=== PATIENT | female | born 1960 | race Caucasian/White ===

== ENCOUNTER 2025-07-07 10:03 | Outpatient (AMB) | payer MEDICARE, SELFPAY ==
[2025-07-07 10:10] VITALS: BMI 32.6
--- NOTE | 2025-07-07 10:10 | A.PHYSOV_ITS ---
Vital Signs 07/07/25 10:10 Height 5 ft 4 in Weight 190 lb BMI 32.6 Intake Visit Reasons: NPV Rebecca Ref- back pain Intake Note: Patient is a 64 year old female in office today as new patient for low back pain. Right leg and hip pain. Allergies adhesive Allergy (Unknown, Verified 07/07/25 10:12) Unknown HPI Comments Details: History of Present Illness The patient is a 64 year old individual presenting with chronic back pain. The patient has had back pain for years, and a prior X-ray reportedly showed degeneration. The pain is localized to the low back with radiation to the right hip and buttock. The pain is exacerbated by standing for more than 5-10 minutes, sleeping, and slight bending at the waist. Walking is tolerated for short periods before a burning sensation begins in the low back, and using a shopping cart for support makes the pain worse. The patient also reports severe pain in the right buttock and hip upon waking in the morning, which improves with movement. The patient denies any numbness or tingling in the legs. Past treatments include physical therapy with traction and stretching, with only cupping providing minimal, temporary relief. Tylenol is ineffective, and muscle relaxers primarily cause somnolence. The patient has tried topical rubs and previously used tramadol post-operatively with some benefit. Relevant medical history includes Stage 3 Chronic Kidney Disease and arthritis. Due to the kidney condition, the patient avoids ibuprofen but admits to taking it infrequently for severe pain. The patient underwent bilateral total knee arthroplasty this year (right in September, left in January) but reports ongoing knee pain and is dissatisfied with the outcome. The patient denies a history of diabetes or being on blood thinners. Pain Description - Location: Low back, right hip, and right buttock. - Onset: The patient has had back pain for years. - Quality: Described as a burning sensation in the lower back after walking, and devastating pain in the right buttock and hip in the morning. - Exacerbating Factors: Pain is worse with standing for more than 5-10 minutes, sleeping, slight bending at the waist, and backward extension. - Relieving Factors: Morning pain in the right hip and buttock improves with movement. - Associated Symptoms: The patient denies numbness or tingling in the legs. - Interference with function: The patient has difficulty standing for more than 10 minutes and performing tasks that require a slight forward lean. Results - Imaging: Patient reports a previous back X-ray showed degeneration. [facility] Medical History (Updated 07/07/25 @ 10:50 by Junior Majano DO) Sacroiliac inflammation Sacroiliac dysfunction Lumbar radiculitis Lumbar disc herniation Surgical History (Updated 06/28/25 @ 15:04 by Humaira Gao MA) History of knee surgery (Unknown) Fistula of vagina (Unknown) History of (Unknown) Social History (Updated 07/07/25 @ 10:13 by Humaira Gao MA) Household Members: Significant Other Alcohol intake: current Alcohol intake frequency: holidays/special occasions only Patient Tobacco Use Status: Former Tobacco user Current occupational status: retired Review of Systems Narrative Review of Systems - Musculoskeletal: Reports chronic low back pain, right hip pain, right buttock pain, and bilateral knee pain. - Neurological: Denies numbness or tingling in the legs. - Genitourinary: Reports a history of stage 3 kidney disease. Physical Exam Exam Exam: Physical Exam - Back: Audible popping noted with standing. - Back: Tenderness to palpation over the lower and middle back. - Range of Motion: Pain elicited with backward extension of the spine. - Range of Motion: There was no pain with internal rotation of the right hip. Pain with palpation over right SI sulcus. Positive right SI provocative maneuvers including SI compression test, Antonio and Hamilton sign. Neurological examination was nonfocal. Lumbar extension was restricted. Gait was waddling. Heel walk and toe walk were not tested. Patient demonstrated no upper motor neuron signs. Vital Signs: BMI result Body Mass Index 32.6 Assessment & Plan Assessment & Plan (1) Lumbar disc herniation: Code(s): M51.26 - Other intervertebral disc displacement, lumbar region Category: Medical (2) Lumbar radiculitis: Code(s): M54.16 - Radiculopathy, lumbar region Category: Medical (3) Sacroiliac dysfunction: Code(s): M53.3 - Sacrococcygeal disorders, not elsewhere classified Category: Medical (4) Sacroiliac inflammation: Code(s): M46.1 - Sacroiliitis, not elsewhere classified Category: Medical Plan Pain Management - Analgesia: The patient reports that Tylenol is ineffective. - Analgesia: The patient uses ibuprofen less than once a week for severe pain, despite a history of kidney disease. - Analgesia: Previous trials include topical rubs and muscle relaxers. - Activities of Daily Living: Pain limits standing to 5-10 minutes and makes tasks involving a slight bend at the waist difficult. - Adverse Effects: Muscle relaxers cause somnolence. - Aberrant Drug Related Behaviors: None noted. Plan Patient was informed and verbally consented to the use of an ambient scribe for clinic note documentation during this visit. 1. Chronic Low Back Pain The patient's chronic low back pain with radiation to the right buttock and hip is exacerbated by standing and slight forward leaning. The differential diagnosis includes a herniated disc pinching a nerve or sacroiliac joint pathology. An MRI of the lumbar spine will be ordered to further evaluate the etiology. For analgesia, tramadol will be prescribed for occasional use for severe pain. It was recommended that the patient start taking turmeric 2000 mg daily with black pepper for its anti-inflammatory effects, which is a safer alternative to NSAIDs given the patient's kidney condition. Follow-up will be scheduled after the holidays to review the MRI results. 2. Chronic Kidney Disease, Stage 3 The patient has a known history of Stage 3 CKD, which contraindicates the use of NSAIDs for pain management. Pain management will focus on safer alternatives, including the prescribed tramadol and the recommended turmeric supplement. The patient will continue to be monitored by the primary care provider for the kidney disease. 3. Chronic Bilateral Knee Pain The patient continues to experience significant bilateral knee pain and expresses dissatisfaction following total knee arthroplasties earlier this year. The knee pain will be managed adjunctively with the pain regimen established for the low back pain, including as-needed tramadol and daily turmeric. Discussion Notes I discussed with the patient that the low back pain, radiating to the right buttock and hip, may be due to a herniated disc a or sacroiliac joint issue. To investigate further, I recommended an MRI of the lower back, and the patient agreed. We reviewed pain management options, noting that NSAIDs like ibuprofen are contraindicated due to the patient's stage 3 chronic kidney disease. I prescribed a limited supply of tramadol for occasional use for severe pain, which the patient has tolerated in the past. I also recommended starting a daily supplement of turmeric 2000 mg with black pepper for its natural anti- inflammatory properties, which is safe for the kidneys. The patient inquired about getting a new bed; I advised that a firm mattress is generally best but could not guarantee it would resolve the back pain. The patient was instructed to schedule a follow-up visit after the holidays to review the MRI results and discuss next steps in management. Patient Instructions - We are ordering an MRI of your lower back to get a better look at what is causing your pain. The imaging center will call you to schedule this. - I have sent a prescription for Tramadol to your pharmacy. Take this medication only as needed for severe pain, as it can cause drowsiness. - Avoid taking anti-inflammatory medications like ibuprofen or naproxen due to your kidney condition. - I recommend you start taking a turmeric supplement, 2000 mg every day. Make sure the brand you buy also contains black pepper, as this helps it work better. This must be taken consistently every day. - Please schedule a follow-up appointment with our office to occur after the holidays. We will review the results of your MRI at that visit. Orders: Orders MR lumbar spine wo con Today M46.1 - Sacroiliitis, not elsewhere classified, M51.26 - Other intervertebral disc displacement, lumbar region, M53.3 - Sacrococcygeal disorders, not elsewhere classified, M54.16 - Radiculopathy, lumbar region Medications: New tramadol Partial fill upon request 100 mg (2 x 50 mg) PO Q6H PRN 56 tabs 0RF pain 7 days M46.1 - Sacroiliitis, not elsewhere classified, M51.26 - Other intervertebral disc displacement, lumbar region, M53.3 - Sacrococcygeal disorders, not elsewhere classified, M54.16 - Radiculopathy, lumbar region Coding Level of Care Code Tele New Pt Level 4 (81983) Complex visit Add On G2211 Diagnoses Lumbar disc herniation M51.26 Lumbar radiculitis M54.16 Sacroiliac dysfunction M53.3 Sacroiliac inflammation M46.1
--- OUTSIDE RECORDS SUMMARY | 2025-07-07 11:24 | XMS_ITS | Encounter Summary ---
Author Organization [facility] Address [address] [place] [address] Care Team Providers Care Candy Attendant Name Role Phone Adina Anderson MD Primary Care Pr ovider Encounter Details Date Type Department Care Team (Late st Contact Info) Description 06/11/2025 Results Follow-Up Adult Medicine [facility] [address] [place], [place] [phone] Sayra Mann PA [address] [place], [place] Social History Tobacco Use Types Packs/Day Years Used Date Smoking Tobacco: Former Cigarettes 0.3 39.9 0 08/05/1976 - 06/23/2016 Smokeless Tobacco: Never Comments:Been using nicotine gum for 5 years quit these 5 days ago Alcohol Use Standard Drinks/Week Comments Yes 0.8 (1 standard drink = 0.6 oz p ure alcohol) RARELY Housing Instability Answer Date Recorde d Are you worried that in the next 2 months you may not have stable housing? No 01/10/2025 Food Access & Nutrition Answer Date Rec orded Do you have access to a vari ety of food including fruits and vegetables? Yes 01/10/2025 Access to Healthcare Answer Date Record ed Within the last 3 months, ho w many times did you visit the emergency department for your medical care? 0 01/10/2025 Health Literacy Answer Date Recorded How often do you need to hav e someone help you when you read instructions, pamphlets, or other written material from your doctor or pharmacy? Rarely 01/10/2025 Caregiver: How often do you need to have someone help you when you read instructions, pamphlets, or other written material from your doctor or pharmacy? Not on file 01/10/2025 Financial Risk Answer Date Recorded How hard is it for you to pa y for the very basics like food, housing, medical care, and air conditioning / heating? Not very hard 01/10/2025 Transportation Answer Date Recorded Has the lack of transportati on kept you from meetings, work, or from getting things needed for daily living? No Has the lack of transportati on kept you from medical appointments or from getting medications? No 01/10/2025 Social Isolation Answer Date Recorded How often do you feel lonely or isolated from th ose around you? Rarely 01/10/2025 Food Risk Answer Date Recorded Within the past 12 months we worried whether our food would run out before we got money to buy more. Never true 01/10/2025 Within the past 12 months th e food we bought just didn't last and we didn't have money to get more. Never true 01/10/2025 Dependent Care Answer Date Recorded Do you need help finding or paying for care for your loved ones. For example, children counselor or elderly care for an older adult? No 01/10/2025 Education Answer Date Recorded Do you think completing more education or training, like finishing a GED, going to college, or learning a trade, would be helpful for you? No 01/10/2025 Employment and Income Answer Date Recor ded During the last four weeks, have you been actively looking for work? No 01/10/2025 Living Situation Answer Date Recorded What is your living situation? Unrecognized valu e 01/10/2025 Interpersonal Safety Answer Date Record ed Physical Abuse Unrecognized value 01/04/2025 Verbal Abuse Unrecognized value 01/04/2025 Comments No Sex and Gender Information Value Date Recorded Sex Assigned at Female 09/29/2024 8:58 AM EST Legal Sex Female 5:15 PM EST Gender Identity Female 09/29/2024 8:58 AM EST Sexual Orientation Straight 09/29/2024 8: 58 AM EST Travel History Travel Start Travel End [place] 05/31/2025 06/07/2025 documented as of this encounter Plan of Treatment Upcoming Encounters Date Type Department Care Team (Late st Contact Info) Description 07/16/2025 11:20 AM EST Appointment Radiology Department [facility] [place] [facility] [address] [place] [address] 07/19/2025 10:10 AM EST Office Visit Pulmonology - [place] [address] [facility] [address] [place] [address] Mary Mcgowan, JAYME [address] [place] [address] 12/29/2025 11:30 AM EDT Office Visit Orthopedic Surgery [facility] [address] [facility] [address] [place] [phone] Tavo Abdi MD [address] [address] documented as of this encounter Visit Diagnoses Not on filedocumented in this encounter Additional Health Concerns Assessment Noted Time PHQ-9 Depression Total Score: 10 025 11:22 AM EDT documented as of this encounter Care Teams Candy Attendant Relationship Specialty Start Date End Date Adina Anderson MD [address] [place] [address] PCP - General 05/09/23 documented as of this encounter
--- OUTSIDE RECORDS SUMMARY | 2025-07-07 11:24 | XMS_ITS ---
Author Name [facility] ([place], [place]) Organization Unknown Care Team Organization Name Specialty Phone Email Start Date End Da te [facility] 06/12/2022
--- OUTSIDE RECORDS SUMMARY | 2025-07-07 11:24 | XMS_ITS | Clinical Summary ---
Author Organization [facility] [address] [place] [address] [address] [place] [address] Phone Care Team Providers Care Supply Chain Technician Name Role Phone Adina Anderson MD Primary Care Pr ovider Allergies Active Allergy Reactions Criticality Noted Date Comments Adhesive Rash Medium 01/27/2025 STERI-STRIP ADHESIVE Silver-Foam Bandage Rash Medium 01/15/2025 Bupropion 07/06/2025 Nausea, hallucinations Medications UNABLE TO FIND Inhale into the lungs. Cpap machine E0601 pressure 10 Active Efudex 5 % cream 023 Active fluticasone HFA (FLOVENT HFA) 110 mcg/actuation inhaler Active propylene glycol/peg 400/PF (SYSTANE, PF, OPHT) Administer 2 drops into affected eye(s) 3 (three) times a day if needed (dry eyes). Active Ventolin HFA 90 mcg/actuation inhalerIndication s:Mild intermittent asthma without complication Inhale 1 puff by mouth every 6 (six) hours if needed for wheezing. 18 g 1 025 Active lisinopriL (PRINIVIL,ZESTRIL ) 5 mg tabletIndications :Stage 3a chronic kidney disease (CMS/HCC V24, CMS/HCC V28),Essential hypertension, benign Take 1 tablet (5 mg total) by mouth 1 (one) time each day. 90 each 1 025 2024 Active cholecalciferol (VITAMIN D-3) 50 mcg (2,000 unit) tablet Take 1 tablet (2,000 Units total) by mouth 1 (one) time each day. 90 tablet 1 Active hydroCHLOROthiazi de (HYDRODIURIL) 25 mg tabletIndications :Essential hypertension, benign Take 1 tablet (25 mg total) by mouth 1 (one) time each day. 90 each 1 025 2025 Active betamethasone dipropionate (DIPROSONE) 0.05 % creamIndications: Eczema, unspecified type,Status post total bilateral knee replacement Apply topically 2 (two) times a day. 30 g 025 2025 Active FLUoxetine (PROzac) 20 mg capsule TAKE 1 CAPSULE BY MOUTH 1 TIME EACH DAY. TAKE WITH 40MG DAILY FOR TOTAL OF 60MG DAILY 90 capsule 1 Active levothyroxine (SYNTHROID, LEVOTHROID) 25 mcg tabletIndications :Subclinical hypothyroidism TAKE 1 TABLET BY MOUTH 1 TIME EACH DAY IN THE MORNING. TAKE ON AN EMPTY STOMACH. DO NOT EAT OR TAKE OTHER MEDS WITHIN 30 MINS OF USE 90 tablet 1 Active tiZANidine (ZANAFLEX) 4 mg tablet Take 1 tablet (4 mg total) by mouth 3 (three) times a day if needed for muscle spasms for up to 7 days. 21 each Active FLUoxetine (PROzac) 40 mg capsuleIndication s:Current mild episode of major depressive disorder, unspecified whether recurrent (CMS/HCC V24) TAKE 1 CAPSULE BY MOUTH 1 TIME EACH DAY. 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 135 each 1 025 2025 Active tirzepatide, weight loss, (ZEPBOUND) 2.5 mg/0.5 mL injectionIndicati ons:Obstructive sleep apnea syndrome,Obesity (BMI 30.0-34.9) Inject 0.5 mL (2.5 mg total) under the skin every 7 (seven) days. 2 mL 025 2024 Active atorvastatin (LIPITOR) 10 mg tabletIndications :Mixed hyperlipidemia Take 1 tablet (10 mg total) by mouth at bedtime. 90 each 1 025 2024 Discontinued FLUoxetine (PROzac) 40 mg capsuleIndication s:Current mild episode of major depressive disorder, unspecified whether recurrent (CMS/[facility] V24) Take 1 capsule (40 mg total) by mouth 1 (one) time each day. 90 capsule 1 025 2024 Discontinued levothyroxine (SYNTHROID, LEVOTHROID) 25 mcg tabletIndications :Subclinical hypothyroidism Take 1 tablet (25 mcg total) by mouth 1 (one) time each day in the morning. Take on an empty stomach. Do not eat or take other meds within 30 mins of use 90 tablet 1 025 2024 Discontinued traZODone (DESYREL) 50 mg tabletIndications :Primary insomnia Take 1.5 tablets (75 mg total) by mouth at bedtime. 135 tablet 1 025 2024 Discontinued(S urgery) buPROPion SR (WELLBUTRIN SR) 150 mg 12 hr tabletIndications :Mild episode of recurrent major depressive disorder ([facility] V24) Take 1 tablet (150 mg total) by mouth 2 (two) times a day. Do not crush, chew, or split. 180 each 025 2024 Discontinued(S precious effects) Active Problems Problem Noted Date Diagnosed Date Eczema 12/17/2024 Assessment & Plan (12/17/2024 4:49 PM EDT): She will trial triamcinolone ointment as needed Orders: triamcinolone (KENALOG) 0.1 % ointment; Apply small amounts to affected area every 12 hours. Do not use for more than 14 days at a time Intertrigo 12/17/2024 Assessment & Plan (12/17/2024 4:49 PM EDT): Start lotrisone for intertrigo under the breasts Orders: clotrimazole-betamethasone (LOTRISONE) 1-0.05 % cream; Apply small amounts to affected area every 12 hours. Do not use for more than 14 days at a time Status post total knee replacement 09/29/2024 Assessment & Plan (06/25/2025 12:09 PM EST): She still struggling with discomfort in the left knee. She will continue with ibuprofen 800 mg sparingly as needed. Aware that this could affect her kidneys due to her chronic kidney disease. Also with back pain. She is going to follow-up with Dr. Majano on July 06 for the back pain History of bronchitis 06/17/2024 Recurrent cold sores 05/08/2024 Overview (05/08/2024): Takes acyclovir prn Subclinical hypothyroidism 12/25/2023 Assessment & Plan (06/25/2025 12:09 PM EST): Well-controlled. Continue levothyroxine 25 mcg daily Assessment & Plan (03/12/2025 5:17 PM EDT): Advised to use the levothyroxine 25mcg on an empty stomach daily Assessment & Plan (12/17/2024 4:49 PM EDT): Continue levothyroxine Orders: Thyroid stimulating hormone with reflex to free t4 and free t3; Future levothyroxine (SYNTHROID, LEVOTHROID) 25 mcg tablet; Take 1 tablet (25 mcg total) by mouth 1 (one) time each day in the morning. Take on an empty stomach. Do not eat or take other meds within 30 mins of use Assessment & Plan (09/11/2024 10:57 AM EST): Last TSH was within normal limits. Advised that she can take her levothyroxine 25 mcg if she wakes up early in the morning to use the restroom, to avoid using all her medications at once which could impact the absorption of levothyroxine. She expressed understanding. CKD (chronic kidney disease) stage 3, GFR 30-59 ml/min (CMS/[facility] V24, CMS/HCC V28) 03/30/2021 Assessment & Plan (06/25/2025 12:09 PM EST): Sasha. Labs done in November Assessment & Plan (03/12/2025 5:17 PM EDT): Pending repeat BMP She is on celebrex for her knee pain. Assessment & Plan (12/17/2024 4:49 PM EDT): Stable. Continue lisinopril Orders: Comprehensive metabolic panel; Future lisinopriL (PRINIVIL,ZESTRIL) 5 mg tablet; Take 1 tablet (5 mg total) by mouth 1 (one) time each day. Assessment & Plan (09/11/2024 10:57 AM EST): Sasha. GFR in June was 57. Will update labs Orders: Comprehensive metabolic panel; Future Vitamin D insufficiency 03/30/2021 Assessment & Plan (12/17/2024 4:49 PM EDT): Continue vitamin D daily Assessment & Plan (09/11/2024 10:57 AM EST): Will update labs Orders: Vitamin D 25 hydroxy; Future Insomnia due to psychological stress 11/16/2020 Assessment & Plan (06/25/2025 12:09 PM EST): Continue trazodone Orders: traZODone (DESYREL) 50 mg tablet; Take 1.5 tablets (75 mg total) by mouth at bedtime. Assessment & Plan (01/11/2025 11:50 AM EDT): For now, continue trazodone 50mg nightly. Hopefully with better control of her anxiety -the insomnia will improve Assessment & Plan (09/11/2024 10:57 AM EST): Continue trazodone 50 mg nightly Anxiety 11/11/2019 Assessment & Plan (06/25/2025 12:09 PM EST): Continue Fluoxetine 60 mg daily Assessment & Plan (09/11/2024 10:57 AM EST): Continue fluoxetine 60 mg daily Major depressive disorder 11/11/2019 Assessment & Plan (06/25/2025 12:09 PM EST): Continue fluoxetine 60 mg daily and start Wellbutrin 150mg BID to help with ongoing symptoms(she previously used Wellbutrin without issue in the past) Provided with resources to establish care with a therapist Orders: buPROPion SR (WELLBUTRIN SR) 150 mg 12 hr tablet; Take 1 tablet (150 mg total) by mouth 2 (two) times a day. Do not crush, chew, or split. Assessment & Plan (03/12/2025 5:17 PM EDT): Her depression is not optimally controlled . She attributes this to her difficult postop course from the left knee surgery. She declines additional meds for now or therapy. She is going to [place] for vacation soon and is hopeful the trip will help her mood For now, continue prozac 60mg daily Assessment & Plan (01/11/2025 11:50 AM EDT): PHQ-9 is 10. Continue Prozac 60 mg daily Assessment & Plan (12/17/2024 4:49 PM EDT): Stable continue p.o. daily Orders: FLUoxetine (PROzac) 40 mg capsule; Take 1 capsule (40 mg total) by mouth 1 (one) time each day. Assessment & Plan (09/11/2024 10:57 AM EST): Continue fluoxetine 60 mg daily De Quervain's tenosynovitis, left 01/27/2019 Obesity (BMI 30.0-34.9) 02/10/2018 Assessment & Plan (06/25/2025 12:09 PM EST): Unfortunately, insurance did not cover the weight loss medication(mounjaro) since at the last visit Will try zepbound especially in light of her sleep apnea Orders: tirzepatide, weight loss, (ZEPBOUND) 2.5 mg/0.5 mL injection; Inject 0.5 mL (2.5 mg total) under the skin every 7 (seven) days. Assessment & Plan (03/12/2025 5:17 PM EDT): Interested in weight loss medication. . Counselled on the side effect of mounjaro. Sent mounjaro F/u in 3 months Orders: tirzepatide (MOUNJARO) 2.5 mg/0.5 mL injection; Inject 0.5 mL (2.5 mg total) under the skin every 7 (seven) days. Assessment & Plan (12/17/2024 4:49 PM EDT): She plans to get out more and trying to exercise once she has fully recovered from her upcoming surgery Assessment & Plan (09/11/2024 10:57 AM EST): Continue with weight loss efforts with weight watchers Obstructive sleep apnea syndrome 08/30/2015 Overview (05/08/2024): [facility] Home sleep test 12/23/2021. Weight 180 BMI 31. AHI 12. Average oxygen saturation 92% with oxygen himanshu 53%. Comment given likely artifactual with no physiologic desaturations below the upper 80s . Obstructive sleep apnea mild mostly obstructive apneas and hypopneas with borderline nocturnal hypoxemia based on 2021 home sleep test. Assessment & Plan (06/25/2025 12:09 PM EST): Continue CPAP nightly Orders: tirzepatide, weight loss, (ZEPBOUND) 2.5 mg/0.5 mL injection; Inject 0.5 mL (2.5 mg total) under the skin every 7 (seven) days. Assessment & Plan (03/12/2025 5:17 PM EDT): Continue CPAP nightly Orders: tirzepatide (MOUNJARO) 2.5 mg/0.5 mL injection; Inject 0.5 mL (2.5 mg total) under the skin every 7 (seven) days. Assessment & Plan (12/17/2024 4:49 PM EDT): Continue CPAP nightly Assessment & Plan (09/11/2024 10:57 AM EST): Continue CPAP nightly Hyperlipidemia 04/12/2009 Assessment & Plan (06/25/2025 12:09 PM EST): Well controlled Continue atorvastatin 10 mg Nightly Assessment & Plan (03/12/2025 5:17 PM EDT): Continue atorvastatin 10 mg Nightly Assessment & Plan (12/17/2024 4:49 PM EDT): Stable. Continue atorvastatin Orders: Comprehensive metabolic panel; Future Lipid panel with reflex to direct LDL; Future atorvastatin (LIPITOR) 10 mg tablet; Take 1 tablet (10 mg total) by mouth at bedtime. Assessment & Plan (09/11/2024 10:57 AM EST): Continue atorvastatin 10 mg Nightly. Orders: atorvastatin (LIPITOR) 10 mg tablet; Take 1 tablet (10 mg total) by mouth at bedtime. Cardiac dysrhythmia 05/09/2005 Overview (05/08/2024): HX PSVT during IMO update Essential hypertension, benign 03/27/2005 Assessment & Plan (06/25/2025 12:09 PM EST): Well controlled continue lisinopril 5 mg daily and HCTZ 25mg daily Assessment & Plan (03/12/2025 5:17 PM EDT): BP is well controlled today. See HPI She is to decrease HCTZ form 50mg to 25mg daily Will continue lisinopril 5mg daily She will complete pending bmp She will monitor her BP at home Orders: hydroCHLOROthiazide (HYDRODIURIL) 25 mg tablet; Take 1 tablet (25 mg total) by mouth 1 (one) time each day. Assessment & Plan (01/11/2025 11:50 AM EDT): Blood pressure today is well-controlled at 127/72. Hydrochlorothiazide 50 mg is permanently discontinued given her recurrent hypokalemia. Lisinopril 5 mg is held for now until labs returned We can titrate the lisinopril upwards for blood pressure management Follow-up in 3 weeks Assessment & Plan (12/17/2024 4:49 PM EDT): Well-controlled. Continue hydrochlorothiazide and lisinopril Orders: Comprehensive metabolic panel; Future hydroCHLOROthiazide (HYDRODIURIL) 50 mg tablet; Take 1 tablet (50 mg total) by mouth 1 (one) time each day. lisinopriL (PRINIVIL,ZESTRIL) 5 mg tablet; Take 1 tablet (5 mg total) by mouth 1 (one) time each day. Assessment & Plan (09/11/2024 10:57 AM EST): Well controlled. Continue hydrochlorothiazide 50 mg daily and lisinopril 5 mg daily Resolved Problems Problem Noted Date Diagnosed Date Resolved Date Primary insomnia 12/17/2024 03/12/2025 Assessment & Plan (03/12/2025 5:17 PM EDT): Not well controlled. Increase trazodone to 75mg nightly Orders: traZODone (DESYREL) 50 mg tablet; Take 1.5 tablets (75 mg total) by mouth at bedtime. Assessment & Plan (12/17/2024 4:49 PM EDT): Continue trazodone nightly Orders: traZODone (DESYREL) 50 mg tablet; Take 1 tablet (50 mg total) by mouth at bedtime. Loose body of both knees 08/26/2024 Primary osteoarthritis of right knee 08/26/2024 03/31/2025 Primary osteoarthritis of left knee 08/26/2024 03/31/2025 Hypothyroidism 01/15/2024 06/17/2024 Encounters Date Type Department Care Team Description 06/26/2025 Results Follow-Up [address] [place], [place] [phone] Adina Anderson MD 06/25/2025 10:35 AM EST Lab Draw [address] Postoperative anemia 06/25/2025 9:45 AM EST Office Visit Adult [address] [phone] Adina Anderson MD Annual wellness visit (Primary Dx); Anxiety; Mild episode of recurrent major depressive disorder ([facility] V24); Insomnia due to psychological stress; Mixed hyperlipidemia; Essential hypertension, benign; Stage 3a chronic kidney disease (CMS/HCC V24, CMS/HCC V28); Obstructive sleep apnea syndrome; Status post total bilateral knee replacement; Subclinical hypothyroidism; Obesity (BMI 30.0-34.9); Osteoporosis screening; Asymptomatic menopausal state 06/11/2025 Results Follow-Up [address] [phone] Sayra Mann PA 06/10/2025 10:41 AM EST - 06/10/2025 11:59 PM EST Hospital Encounter [address] [phone] Chronic bilateral low back pain without sciatica Discharge Disposition: Home or Self Care 06/10/2025 10:00 AM EST Office Visit [address] [phone] Sayra Mann PA Chronic bilateral low back pain without sciatica (Primary Dx) 05/05/2025 9:00 AM EDT Office Visit Orthopedic Surgery [address] [phone] Tavo Abdi MD Eczema, unspecified type (Primary Dx); Status post total bilateral knee replacement; Open wound of left knee, subsequent encounter from Last 3 Months Immunizations Immunization Administration Dates Next Due COVID-19 (Pfizer/Comirnaty) 12yo and older 05/05/2024 Influenza Quadravalent, MDCK , 0.5ml, preservative free (Flucelvax) 6mo and older 04/30/2023,04/25/2022,04/18/2021,2019 Influenza trivalent, 0.5mL ( Fluad) 65yo and older 05/10/2025 Influenza trivalent, with preservative (Fluzone; Afluria) 6mo and older 04/17/2024,05/30/2019,05/07/2018,2016 Influenza, Unspecified 04/30/2023,05/05/2019 Pneumococcal conjugate 20 va lent (Prevnar 20, PCV 20) 2mo and older 06/17/2024 Td Tetanus diptheria (Tdvax) 7yo and older 04/18/2021 Td, Unspecified 04/17/2021 Tdap Tetanus diptheria acell ular pertussis (Boostrix; Adacel) 7yo and older 04/12/2009 Surgical History Surgery Date Site/Laterality Comments OTHER SURGICAL HISTORY PROCEDURE: [place] DELIVERY ONLY W/ CARE; COMMENT: c -section X2 OTHER SURGICAL HISTORY 12/27/2004 PROCEDURE: MAMMOGRAM COLONOSCOPY 11/11/2009 PROCEDURE: [place] COLONOSCOPY FLX DX W/COLLJ SPEC WHEN PFRMD; COMMENT: Normal RECTAL VAGINAL FISTULECTOMY TOTAL KNEE ARTHROPLASTY Right Medical History Medical History Date Comments Essential hypertension, benign 03/27/2005 D X:Essential hypertension, benign Conversion disorder DX:Conversio n disorder Cardiac dysrhythmia, unspecified DX:Cardiac dysrhythmia, unspecified; COMMENT: HX PSVT during Hyperlipidemia DX:Hyperlipidemi a Special screening for malign ant neoplasms, colon 11/11/2009 DX:Special screening for mal ignant neoplasms, colon Recurrent cold sores DX:Recurren t cold sores De Quervain's tenosynovitis, left 01/27/2019 DX:De Quervain's tenosynovitis, left Sweating increase 01/27/2019 DX:Sweating in crease YAMILE on CPAP Hypothyroidism Family History Medical History Relation Name Comments Heart attack Father second and fata l ND in his 80's; HTN and HLD Stroke Maternal Grandfather Other: colostomy bag Maternal Grandmother diagnosis? Ovarian cancer Mother Heart attack Paternal Grandmother 27 hea rt attacks and pacemaker Breast cancer Neg Hx Relation Name Status Comments Father Maternal Grandfather Maternal Grandmother Mother Paternal Grandfather Paternal Grandmother Social History Tobacco Use Types Packs/Day Years Used Date Smoking Tobacco: Former Cigarettes 0.3 39.9 0 08/05/1976 - 06/23/2016 Smokeless Tobacco: Never Tobacco Cessation:Counseling Given: Not Answered Comments:Been using nicotine gum for 5 years quit these 5 days ago Alcohol Use Standard Drinks/Week Comments Yes 0.8 (1 standard drink = 0.6 oz p ure alcohol) RARELY Housing Instability Answer Date Recorde d Are you worried that in the next 2 months you may not have stable housing? No 06/25/2025 Food Access & Nutrition Answer Date Rec orded Do you have access to a vari ety of food including fruits and vegetables? Yes 06/25/2025 Access to Healthcare Answer Date Record ed Within the last 3 months, ho w many times did you visit the emergency department for your medical care? 0 06/25/2025 Health Literacy Answer Date Recorded How often do you need to hav e someone help you when you read instructions, pamphlets, or other written material from your doctor or pharmacy? Never 06/25/2025 Caregiver: How often do you need to have someone help you when you read instructions, pamphlets, or other written material from your doctor or pharmacy? Not on file 06/25/2025 Financial Risk Answer Date Recorded How hard is it for you to pa y for the very basics like food, housing, medical care, and air conditioning / heating? Not very hard 06/25/2025 Transportation Answer Date Recorded Has the lack of transportati on kept you from meetings, work, or from getting things needed for daily living? No Has the lack of transportati on kept you from medical appointments or from getting medications? No 06/25/2025 Social Isolation Answer Date Recorded How often do you feel lonely or isolated from th ose around you? Often 06/25/2025 Food Risk Answer Date Recorded Within the past 12 months we worried whether our food would run out before we got money to buy more. Never true 06/25/2025 Within the past 12 months th e food we bought just didn't last and we didn't have money to get more. Never true 06/25/2025 Dependent Care Answer Date Recorded Do you need help finding or paying for care for your loved ones. For example, child study team director or elderly care for an older adult? No 06/25/2025 Education Answer Date Recorded Do you think completing more education or training, like finishing a GED, going to college, or learning a trade, would be helpful for you? N/A 06/25/2025 Employment and Income Answer Date Recor ded During the last four weeks, have you been actively looking for work? No 06/25/2025 Living Situation Answer Date Recorded What is your living situation? Unrecognized valu e 06/25/2025 Interpersonal Safety Answer Date Record ed Physical Abuse Unrecognized value 01/04/2025 Verbal Abuse Unrecognized value 01/04/2025 Comments No Sex and Gender Information Value Date Recorded Sex Assigned at Female 09/29/2024 8:58 AM EST Legal Sex Female 5:15 PM EST Gender Identity Female 09/29/2024 8:58 AM EST Sexual Orientation Straight 09/29/2024 8: 58 AM EST Travel History Travel Start Travel End [place] 05/31/2025 06/07/2025 Obstetrics History Last Filed Vital Signs Vital Sign Reading Time Taken Comments Blood Pressure 119/67 06/25/2025 9:52 AM EST Pulse 84 06/25/2025 9:52 AM EST Temperature 36.4 C (97.5 F) 06/25/2025 9:52 AM EST Respiratory Rate 16 06/25/2025 9:52 AM EST Oxygen Saturation 95% 06/25/2025 9:52 AM EST Inhaled Oxygen Concentration - - Weight 88 kg (194 lb) 06/25/2025 9:52 AM EST Height 162.6 cm (5' 4 ) 06/25/2025 9:52 AM EST Body Mass Index 33.3 06/25/2025 9:52 AM EST Plan of Treatment Upcoming Encounters Date Type Department Care Team (Late st Contact Info) Description 07/16/2025 11:20 AM EST Appointment Radiology Department [address] [phone] 07/19/2025 10:10 AM EST Office Visit Pulmonology - [address] [place] [phone] Mary Mcgowan NP [address] [place] [phone] 12/29/2025 11:30 AM EDT Office Visit Orthopedic Surgery - [place] [address] [phone] Tavo Abdi MD [address] [address] Health Maintenance Due Date Last Done Comments Zoster Vaccines (1 of 2) 1977 Osteoporosis Screening (Bone Density Screening) 07/14/2022 Breast Cancer Screening 01/12/2025 01/13/20 24, 01/13/2024, 12/28/2022, Additional history exists COVID-19 Vaccine (9 - Pfizer risk 2024- season) 2025 05/10/2025, 05/05/2024, 04/30/2023, Additional history exists Hypertension/CHF/CAD Annual BMP Blood Test 03/12/2026 03/12/2025, 01/20/2025, 01/11/2025, Additional history exists Falls Risk Assessment 06/25/2026 06/25/2025, 025 Medicare Annual Wellness Visit 06/25/2026 06/25/2025 Social Influencers of Health Screening 06/25/2026 06/25/2025 Cervical Cancer Screening: HPV 01/04/2027 01/04/2022 Cholesterol Screening (Lipid Panel) 12/17/2029 12/17/2024, 06/17/2024, 01/13/2024, Additional history exists DTaP,Tdap,and Td Vaccines (4 - Td or Tdap) 04/18/2031 04/18/2021, 04/17/2021, 04/12/2009 RSV Immunization Adult Patients (1 - 1-dose 75+ series) 2033 Colorectal Cancer Screening: Stool Based Tests (FOBT/FIT) 02/11/2034 02/12/2024 Hepatitis C Screening Completed 05/16/2015 Colorectal Cancer Screening: Colonoscopy Discontinued 02/12/2024 Pneumococcal Vaccine: 50+ Years Completed 06/17/2024 Influenza Vaccine Completed 05/10/2025, , 04/30/2023, Additional history exists Depression Screening Completed 06/25/2025, 12/17/19 24 HIB Vaccines Aged Out No longer eligi ble based on patient's age to complete this topic HPV Vaccines Aged Out No longer eligi ble based on patient's age to complete this topic Hepatitis A Vaccines Aged Out No long er eligible based on patient's age to complete this topic Hepatitis B Vaccines Aged Out No long er eligible based on patient's age to complete this topic IPV Vaccines Aged Out No longer eligi ble based on patient's age to complete this topic MMR Vaccines Aged Out No longer eligi ble based on patient's age to complete this topic Meningococcal ACWY Vaccine Aged Out N o longer eligible based on patient's age to complete this topic Meningococcal B Vaccine Aged Out No l onger eligible based on patient's age to complete this topic RSV Immunization Patients Under 20 months Aged Out No longer eligible based on patient's age to complete this topic Varicella Vaccines Aged Out No longer eligible based on patient's age to complete this topic Medical Devices Implanted Type Area Carpentry Professional Device Identifier Shelf Expiration Date Model / Serial / Lot Cement Bone Simplex Full Dose - Sn/A - [id number] Implanted:Qty: 2 on 09/29/2024 by Tavo Abdi MD at [facility] Bone Cement Right: Knee [employer] 04/04/2027 6191-1-001 / N/A / [id number] Cement Bone Surg Simplex Radiopq - Sn/A - [id number] Implanted:Qty: 2 on 01/04/2025 by Tavo Abdi MD at [facility] Bone Cement Left: Knee [employer] 06/04/2027 6191-1-010 / N/A / [id number] Fem Cr Cement Ccr Sergio Sz 8 R - Sn/A - [id number] Implanted:Qty: 1 on 09/29/2024 by Tavo Abdi MD at [facility] Joints Knee Right: Knee [employer] [id number] 09/21/2033 [id number] / N/A / [id number] Knee Psn Tib Milk Route Deliverer Stm [address] - Sn/A - [id number] Implanted:Qty: 1 on 09/29/2024 by Tavo Abdi MD at [facility] Joints Knee Right: Knee [employer] [id number] 09/18/2033 [id number] / N/A / [id number] All Poly Pat Ve 32 Mm Lisa - Sn/A - [id number] Implanted:Qty: 1 on 09/29/2024 by Tavo Abdi MD at [facility] Knee Right: Knee [employer] [id number] 03/30/2029 [id number] / N/A / [id number] Vivacit-E Tibial Insert, Sz 8-9 Cr 10mm - Sn/A - [id number] Implanted:Qty: 1 on 09/29/2024 by Tavo Abdi MD at [facility] Knee Right: Knee [employer] [id number] 02/23/2029 [id number] 0 / N/A / [id number] All Poly Pat Ve 32 Mm Lisa - Sn/A - [id number] Implanted:Qty: 1 on 01/04/2025 by Tavo Abdi MD at [facility] Knee Left: Knee [employer] [id number] 08/31/2029 [id number] / N/A / [id number] Fem Cr Cement Ccr Sergio Sz 7 L - Sn/A - [id number] Implanted:Qty: 1 on 01/04/2025 by Tavo Abdi MD at [facility] Knee Left: Knee [employer] [id number] 04/11/2034 [id number] / N/A / [id number] Knee Psn Tib Milk Route Deliverer Stm 5 Deg Sz Dl - Sn/A - [id number] Implanted:Qty: 1 on 01/04/2025 by Tavo Abdi MD at [facility] Knee Left: Knee [employer] [id number] 07/23/2034 [id number] / N/A / [id number] Tibial Insert Cr Sz 6-7 12mm - Sn/A - [id number] Implanted:Qty: 1 on 01/04/2025 by Tavo Abdi MD at [facility] Knee Left: Knee [employer] [id number] 05/02/2027 [id number] / N/A / [id number] 3.5mm Hex Head Screw Implanted:Qty: 1 on 09/29/2024 by Tavo Abdi MD at [facility] Right: Knee [employer] 07/19/2034 [id number] / N/A / [id number] Procedures Procedure Name Priority Date/Time Associated Diagnosis Comments CBC WITH AUTO DIFFERENTIAL Routine 06/25/2025 10:44 AM EST Postoperative anemia CBC AND DIFFERENTIAL Routine 06/25/2025 10:44 AM EST Postoperative anemia FERRITIN Routine 06/25/2025 10:44 AM EST Postoperative anemia IRON AND TIBC Routine 06/25/2025 10:44 AM EST Postoperative anemia XR LUMBAR SPINE 4+ VIEWS Routine 06/10/2025 10:56 AM EST Chronic bilateral low back pain without sciatica CULTURE WOUND WITH GRAM STAIN Routine 05/05/2025 8:36 AM EDT Eczema, unspecified type Open wound of left knee, subsequent encounter BASIC METABOLIC PANEL Routine 03/12/2025 10:37 AM EDT Stage 3a chronic kidney disease (CMS/HCC V24, CMS/HCC V28) LIPID PANEL WITH REFLEX TO DIRECT LDL Routine 12/17/2024 11:22 AM EDT Mixed hyperlipidemia HM COLONOSCOPY Routine 02/12/2024 SCREENING MAMMOGRAPHY BI 2-VIEW BREAST INC CAD Routine 01/13/2024 10:47 AM EDT Encounter for screening mammogram for malignant neoplasm of breast HM DEPRESSION SCREENING Routine 12/17/2023 HPV Routine 01/04/2022 HEPATITIS C SCREENING Routine 05/16/2015 from Last 3 Months or Most Recently Relevant to Health Maintenance Results * CBC auto differential (06/25/2025 10:44 AM EST) WBC 7.6 4.8 - 10.8 K/mcL LAB HEMETOLOGY METHOD 06/25/2025 12:36 PM [facility] RBC 4.20 3.80 - 4.80 M/mcL LAB HEMETOLOGY METHOD 06/25/2025 12:36 PM [facility] Hemoglobin 12.8 11.5 - 16.0 g/dL LAB HEMETOLOGY METHOD 06/25/2025 12:36 PM [facility] Hematocrit 38.2 35.0 - 47.0 % LAB HEMETOLOGY METHOD 06/25/2025 12:36 PM [facility] MCV 90.5 79.0 - 98.0 FL LAB HEMETOLOGY METHOD 06/25/2025 12:36 PM [facility] MCH 30.3 27.0 - 32.0 pcg LAB HEMETOLOGY METHOD 06/25/2025 12:36 PM [facility] MCHC 33.5 32.0 - 37.0 g/dL LAB HEMETOLOGY METHOD 06/25/2025 12:36 PM [facility] RDW 13.5 11.0 - 15.0 % LAB HEMETOLOGY METHOD 06/25/2025 12:36 PM [facility] Platelets 266 130 - 400 K/mcL LAB HEMETOLOGY METHOD 06/25/2025 12:36 PM [facility] MPV 10.2 7.0 - 11.0 FL LAB HEMETOLOGY METHOD 06/25/2025 12:36 PM [facility] NRBC 0.0 <1.0 % LAB HEMETOLOGY METHOD 06/25/2025 12:36 PM [facility] NRBC Absolute 0.00 <0.10 K/mcL LAB HEMETOLOGY METHOD 06/25/2025 12:36 PM [facility] Neutrophils Relative 60.1 % LAB HEMETOLOGY METHOD 06/25/2025 12:36 PM [facility] Lymphocytes Relative 29.5 % LAB HEMETOLOGY METHOD 06/25/2025 12:36 PM [facility] Monocytes Relative 7.2 % LAB HEMETOLOGY METHOD 06/25/2025 12:36 PM [facility] Eosinophils Relative 2.1 % LAB HEMETOLOGY METHOD 06/25/2025 12:36 PM [facility] Basophils Relative 0.7 % LAB HEMETOLOGY METHOD 06/25/2025 12:36 PM [facility] Immature Granulocytes Relative 0.4 % LAB HEMETOLOGY METHOD 06/25/2025 12:36 PM [facility] Neutrophils Absolute 4.58 1.50 - 7.00 K/mcL LAB HEMETOLOGY METHOD 06/25/2025 12:36 PM [facility] Lymphocytes Absolute 2.25 1.00 - 5.00 K/mcL LAB HEMETOLOGY METHOD 06/25/2025 12:36 PM [facility] Monocytes Absolute 0.55 0.20 - 1.00 K/mcL LAB HEMETOLOGY METHOD 06/25/2025 12:36 PM [facility] Eosinophils Absolute 0.16 0.00 - 0.50 K/mcL LAB HEMETOLOGY METHOD 06/25/2025 12:36 PM [facility] Basophils Absolute 0.05 0.00 - 0.20 K/mcL LAB HEMETOLOGY METHOD 06/25/2025 12:36 PM EST [facility] Immature Granulocytes Absolute 0.03 0.00 - 0.03 K/mcL LAB HEMETOLOGY METHOD 06/25/2025 12:36 PM EST [facility] Blood Venous blood specimen / Unknown Venipuncture / Unknown 06/25/2025 10:44 AM EST 06/25/2025 10:44 AM EST Adina Anderson MD LAB BLOOD ORDERA BLES Final Result [facility] [address] [place] [address], [place] [phone] * Iron and TIBC (06/25/2025 10:44 AM EST) Iron 61 40 - 150 mcg/dL 06/25/2025 2:45 PM EST [facility] TIBC 311 250 - 450 mcg/dL 06/25/2025 2:45 PM EST [facility] Iron Saturation 20 15 - 50 % 2:45 PM EST [facility] Blood Venous blood specimen / Unknown Venipuncture / Unknown 06/25/2025 10:44 AM EST 06/25/2025 10:44 AM EST Adina Anderson MD LAB BLOOD ORDERA BLES Final Result [facility] [address] [place] [address], [place] [phone] * Ferritin (06/25/2025 10:44 AM EST) Ferritin 149 7 - 271 ng/mL 06/25/2025 2:48 PM EST [facility] Blood Venous blood specimen / Unknown Venipuncture / Unknown 06/25/2025 10:44 AM EST 06/25/2025 10:44 AM EST Adina Anderson MD LAB BLOOD ORDERA BLES Final Result [facility] [address] [place] [address], [place] [phone] * XR Lumbar Spine 4+ Views (06/10/2025 10:56 AM EST) Anatomical Region Laterality Modality Spine, L-spine Radiographic Rosamaria ging 06/10/2025 6:01 PM EST Narrative 06/10/2025 6:02 PM EST Lumbosacral spine, 5 views. History pain. Comparison with previous studies, latest from 11/27/2023. Vertebral bodies are maintained in height. There is narrowing of the disc spaces at L3-4 and L5-S1 level. There are hypertrophic degenerative changes in the facet joints from L3-4 to L5-S1. There are discogenic osteophytes more prominent at L3-4 levels. No fractures, dislocations or destructive lesions. There is no significant interval change since prior examination. CONCLUSIONS: Multilevel bony and discs degenerative changes. -------- FINAL REPORT -------- Dictated By: Ayana Garcia Dictated Date: 06/10/2025 18:01 ET Assigned Physician: Ayana Garcia Reviewed and Electronically Signed By: Ayana Garcia Signed Date: 06/10/2025 18:02 ET Workstation ID: [id number] Transcribed By: Self Edit Transcribed Date: 06/10/2025 18:01 ET Procedure Note Ayana Garcia MD - 06/10/2025 Lumbosacral spine, 5 views. History pain. Comparison with previous studies, latest from 11/27/2023. Vertebral bodies are maintained in height. There is narrowing of the discspaces at L3-4 and L5-S1 level. There are hypertrophic degenerativechanges in the facet joints from L3-4 to L5-S1. There are discogenic osteophytes more prominent at L3-4 levels. Nofractures, dislocations or destructive lesions. There is no significantinterval change since prior examination. CONCLUSIONS: Multilevel bony and discs degenerative changes. -------- FINAL REPORT -------- Dictated By: Ayana Garcia Dictated Date: 06/10/2025 18:01 ET Assigned Physician: Ayana Garcia Reviewed and Electronically Signed By: Ayana Garcia Signed Date: 06/10/2025 18:02 ET Workstation ID: [id number] Transcribed By: Self Edit Transcribed Date: 06/10/2025 18:01 ET us Sayra MANDEL IMG XR PROCEDURES Final Resul t * Culture wound with gram stain (05/05/2025 8:36 AM EDT) Pathologist [facility] Culture, Wound Mixed skin phillip present. No pathogens isolated. 05/08/2025 10:42 AM EDT [facility] Gram Stain Result No polymorphonuclear leukocytes, No epithelial cells, and No organisms noted 05/08/2025 10:42 AM EDT [facility] Exudate Structure of left knee region / Unknown 05/05/2025 8:36 AM EDT 05/05/2025 8:36 AM EDT Tavo Abdi MD LAB MICROBIOLOGY - NERAL ORDERABLES Final Result [facility] [address] [place] [address], [place] [phone] * (ABNORMAL) Basic metabolic panel (03/12/2025 10:37 AM EDT) Sodium 139 133 - 145 mmol/L LAB CHEMISTRY METHOD 03/12/2025 2:26 PM EDT [facility] Potassium 3.5 3.5 - 5.5 mmol/L LAB CHEMISTRY METHOD 03/12/2025 2:26 PM EDT [facility] Chloride 99 96 - 110 mmol/L LAB CHEMISTRY METHOD 03/12/2025 2:26 PM EDT [facility] CO2 32 21 - 32 mmol/L LAB CHEMISTRY METHOD 03/12/2025 2:26 PM [facility] Anion Gap 8 3 - 11 LAB CHEMISTRY METHOD 03/12/2025 2:26 PM [facility] Glucose 87 70 - 100 mg/dL LAB CHEMISTRY METHOD 03/12/2025 2:26 PM T [facility] BUN 17 5 - 25 mg/dL LAB CHEMISTRY METHOD 03/12/2025 2:26 PM [facility] Creatinine 1.25(H) 0.50 - 1.10 mg/dL LAB CHEMISTRY METHOD 03/12/2025 2:26 PM [facility] eGFR 48(L) >=60 mL/min/1. 73m2 LAB CHEMISTRY METHOD 03/12/2025 2:26 PM T [facility] Comment:Calculation based on the Chronic Kidney Disease Epidemiology Collaboration (CKD-EPI) equation refit without adjustment for race. BUN/Creatinine Ratio 13.6 LAB CHEMISTRY METHOD 03/12/2025 2:26 PM [facility] Calcium 9.6 8.5 - 10.5 mg/dL LAB CHEMISTRY METHOD 03/12/2025 2:26 PM [facility] Blood Venous blood specimen / Unknown Venipuncture / Unknown 03/12/2025 10:37 AM EDT 03/12/2025 10:37 AM EDT us Adina Anderson MD LAB BLOOD ORDERA BLES Final Result [facility] [address] [place] [address], [place] [phone] * Lipid panel with reflex to direct LDL (12/17/2024 11:22 AM EDT) Cholesterol 182 0 - 200 mg/dL LAB CHEMISTRY METHOD 12/17/2024 4:43 PM EDT [facility] Triglycerides 123 0 - 150 mg/dL LAB CHEMISTRY METHOD 12/17/2024 4:43 PM EDT [facility] HDL 70 >=40 mg/dL LAB CHEMISTRY METHOD 12/17/2024 4:43 PM EDT [facility] LDL Calculated 87 0 - 100 mg/dL LAB CHEMISTRY METHOD 12/17/2024 4:43 PM EDT [facility] VLDL Cholesterol Kenny 24.6 mg/dL LAB CHEMISTRY METHOD 12/17/2024 4:43 PM EDT [facility] Non HDL Chol. (LDL+VLDL) 112 <145 mg/dL LAB CHEMISTRY METHOD 12/17/2024 4:43 PM EDT [facility] Chol/HDL Ratio 2.6 0.0 - 4.4 LAB CHEMISTRY METHOD 12/17/2024 4:43 PM EDT [facility] Blood Venous blood specimen / Unknown Venipuncture / Unknown 12/17/2024 11:22 AM EDT 12/17/2024 11:22 AM EDT Adina Anderson MD LAB BLOOD ORDERA BLES Final Result [facility] [address] [place] [address], * Colonoscopy (02/12/2024) Pathologist [facility] Colonoscopy Abstracted, Positive Anatomical Region Laterality Modality Other Historical Provider HEALTH MAINTENANCE Final Result * SCREENING MAMMOGRAPHY BI 2-VIEW BREAST INC CAD (01/13/2024 10:47 AM EDT) Anatomical Region Laterality Modality Radiographic Rosamaria ging 12/28/2022 10:2 9 AM EDT Narrative 01/13/2024 7:46 PM EDT This is a summary report. The complete report is available in the patient's medical record. If you cannot access the medical record, please contact the sending organization for a detailed fax or copy. Exam: Screening mammogram Findings: Digital bilateral full-field screening mammography is performed with tomosynthesis and interpreted with the aid of computer-aided detection. Comparison is made with 12/28/2022 and as far back as 12/15/2020. Breast parenchyma is heterogeneously dense, which may obscure small masses. No new suspicious mass, architectural distortion, or suspicious calcifications. Impression: No mammographic evidence of malignancy. BI-RADS 1 - negative Procedure Note Kimberly Jacob MD - 05/20/2024 This is a summary report. The complete report is available in thepatient's medical record. If you cannot access the medical record, pleasecontact the sending organization for a detailed fax or copy. Exam: Screening mammogram Findings: Digital bilateral full-field screening mammography is performedwith tomosynthesis and interpreted with the aid of computer-aideddetection. Comparison is made with 12/28/2022 and as far back as12/15/2020. Breast parenchyma is heterogeneously dense, which may obscure smallmasses. No new suspicious mass, architectural distortion, or suspiciouscalcifications. Impression: No mammographic evidence of malignancy. BI-RADS 1 - negative Result [facility] Lluvia MANDEL IMG XR PROCEDURES Final Result * Depression Screening (12/17/2023) Pathologist [facility] Depression Screening Abstracted Result [facility] Provider HEALTH MAINTENANCE Final Result * Cervical Cancer Screening: HPV (01/04/2022) Pathologist [facility] Cervical Cancer Screening: HPV Abstracted, Negative Result [facility] Provider HEALTH MAINTENANCE Final Result * Hepatitis C Screening (05/16/2015) Pathologist [facility] Hepatitis C Screening Abstracted Result [facility] Provider HEALTH MAINTENANCE Final Result from Last 3 Months or Most Recently Relevant to Health Maintenance Insurance [facility] Advance Directives Documents on File Type Date Recorded 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
--- OUTSIDE RECORDS SUMMARY | 2025-07-07 11:24 | XMS_ITS | Encounter Summary ---
Author Organization [facility] Address [address] [place] [address] Care Team Providers Care Principal Network Architect Name Role Phone Adina Anderson MD Primary Care Pr ovider Encounter Details Date Type Department Care Team (Late st Contact Info) Description 06/26/2025 Results Follow-Up Adult Medicine [address] [phone] Adina Anderson MD [address] [place] [address] Social History Tobacco Use Types Packs/Day Years [...] care for your loved ones. For example, children's ministries director or elderly care for an older [...] EST Travel History Travel Start Travel End [place] 05/31/2025 06/07/2025 documented as of this encounter Plan of Treatment Upcoming Encounters Date Type Department Care Team (Late st Contact Info) Description 07/16/2025 11:20 AM EST Appointment Radiology Department [facility] [address] [place] [phone] 07/19/2025 10:10 AM EST Office Visit Pulmonology - [place] [address] [facility] [address] [place] [phone] Mary Mcgowan, JAYME [address] [place] [phone] 12/29/2025 11:30 AM EDT Office Visit Orthopedic Surgery - [place] [address] [facility] [address] [place] [phone] Tavo Abdi MD [address] [address] documented as of this encounter Visit Diagnoses Not on filedocumented in this encounter Additional Health Concerns Assessment Noted Time PHQ-9 Depression Total Score: 8 06/25/20 9:50 AM EST A fall risk assessment has been complete d for the patient 06/25/2025 9:47 AM EST documented as of this encounter Care Teams Principal Network Architect Relationship Specialty Start Date End Date Adina Anderson MD [address] [place] [phone] PCP - General 05/09/23 documented as of this encounter
== END 2025-07-07 10:52 | disposition home or self-care (01) ==
LOC: HO.HPHYS 10:03
PROVIDERS: PCP Family Medicine; Visit Provider Physical Medicine & Rehabilitation
DX: M51.26 Other intervertebral disc displacement, lumbar region (principal); M54.16 Radiculopathy, lumbar region; M53.3 Sacrococcygeal disorders, not elsewhere classified; M46.1 Sacroiliitis, not elsewhere classified
CPT/HCPCS: 99204; G2211

== ENCOUNTER → 2025-07-07 10:03 | Outpatient (BNVA) | payer MEDICARE, SELFPAY | PROVIDERS: PCP Family Medicine; Visit Provider Physical Medicine & Rehabilitation | DX: M51.26 Other intervertebral disc displacement, lumbar region (principal); M54.16 Radiculopathy, lumbar region; M53.3 Sacrococcygeal disorders, not elsewhere classified; M46.1 Sacroiliitis, not elsewhere classified; G89.29 Other chronic pain; N18.30 Chronic kidney disease, stage 3 unspecified; M25.561 Pain in right knee; M25.562 Pain in left knee | CPT/HCPCS: 99202 ==